=== PATIENT | male | born 1980 | race Hispanic/Latino ===

== ENCOUNTER 2017-07-04 14:36 | Emergency (ER) | payer SELFPAY ==
--- NOTE | 2017-07-04 14:55 | Emergency Department Report ---
Chief Complaint: Chest Pain Stated Complaint: CHEST PAIN X 5 DAYS Time Seen by Provider: 07/04/17 14:49 - HPI History of Present Illness: PT states he is having 10-15 episodes of chest pain a day x 5 days. Pt also reports coughing. PT states other than the coughing, he feels fine - ROS Review of Systems: - fever + cough + chest pain - Exam Physical Exam: LLL diminished pt looks well, non toxic MSE screening note: Focused history and physical exam performed. Due to findings the following was ordered: ekg, xr, lab ED Disposition for MSE Condition: Stable
[2017-07-04 15:38] LABS: Alanine Aminotransferase 28 units/L (7-56); Albumin 4.8 g/dL (3.9-5); Albumin/Globulin Ratio 1.6 %; Alkaline Phosphatase 85 units/L (35-129); Anion Gap 18 mmol/L; BUN/Creatinine Ratio 24.44; Blood Urea Nitrogen 22 mg/dL (9-20); Calcium 9.7 mg/dL (8.4-10.2); Carbon Dioxide 25 mmol/L (22-30); Chloride 101.5 mmol/L (98-107); Glucose 100 mg/dL (75-100); Potassium 3.8 mmol/L (3.6-5.0); Sodium 141 mmol/L (137-145); Total Protein 7.8 g/dL (6.3-8.2)
[2017-07-04 15:45] LABS: Basophils % (Auto) 0.9 % (0.0-1.8); Eosinophils % (Auto) 2.7 % (0.0-4.3); Hematocrit 45.2 % (35.5-45.6); Hemoglobin 14.9 gm/dl (11.8-15.2); Mean Corpuscular HGB Conc 33 % (32-34); Mean Corpuscular Hemoglobin 30 pg (28-32); Mean Corpuscular Volume 89 fl (84-94); Platelet Count 195 K/mm3 (140-440); Red Blood Count 5.06 M/mm3 (3.65-5.03); Red Cell Distribution Width 13.4 % (13.2-15.2); White Blood Count 8.5 K/mm3 (4.5-11.0)
[2017-07-04 18:03] VITALS: BP 121/82
--- NOTE | 2017-07-05 07:43 | XRay Report ---
Chest 2 views: History: Chest pain, cough. Findings: Normal cardiomediastinal silhouette. Trachea is midline. No consolidation, pneumothorax or pleural effusion. Impression: No acute cardiopulmonary findings.
== END 2017-07-05 01:40 | disposition left against medical advice (07) ==
LOC: ED 14:36
DX: R07.9 Chest pain, unspecified (principal); Z53.21 Procedure and treatment not carried out due to patient leaving prior to being seen by health care provider
CPT/HCPCS: 36415; 71020; 80053; 84484; 85025; 93005; 93010